=== PATIENT | female | born 1990 | race Caucasian/White ===

== ENCOUNTER 2018-09-10 18:14 | Observation (INO) | payer OTHER ==
[2018-09-10] MEDS ORDERED: LACTATED RINGERS 1,000 ML ONE (19:24)
[2018-09-10] MEDS ORDERED: LACTATED RINGERS 1,000 ML IV ONE (20:08)
[2018-09-10 20:54] LABS: Bacteria,Urine 2+ /HPF (Negative); Bilirubin,Urine NEG (Negative); Blood,Urine NEG (Negative); Color,Urine Yellow (Yellow); Protein,Urine <15 mg/dL mg/dL (Negative); Urobilinogen,Urine < 2.0 mg/dL (<2.0)
[2018-09-10] MEDS ORDERED: BRETHINE SUB-Q ONE (21:35)
[2018-09-10] MEDS ORDERED: BRETHINE ONE (21:42)
[2018-09-10] MEDS ORDERED: COLACE PO PRN (23:20)
[2018-09-10] MEDS ORDERED: PROCARDIA*For Tocolysis only PO ONE (23:45)
[2018-09-11] MEDS: DECADRON IM SCH ×3 (00:17→23:55)
[2018-09-11] MEDS: AMPICILLIN/NS 2 GM/100 ML 2 GM/100 ML BAG IV SCH ×5 (01:15→23:52)
[2018-09-11] MEDS: TYLENOL PO PRN ×3 (03:14→23:53)
[2018-09-11] MEDS: PROCARDIA*For Tocolysis only PO SCH ×4 (06:06→23:53)
[2018-09-11] MEDS: LACTATED RINGERS 1,000 ML IV SCH ×2 (07:25→18:45)
[2018-09-11] MEDS: PRENATAL VITAMIN PO SCH (10:53)
--- NOTE | 2018-09-11 17:20 | History and Physical Report ---
History of Present Illness Date of admission: 09/11/18 01:08 History of present illness: 27yo admitted for contractions at 34 weeks. She has a history of 2 previous 32, 35 week deliveries. Her cervix is 1/thick/high. She was admitted for steroids. She receives care at [facility] de . She receives weekly 17 OH- progesterone for prevention of labor. Past History - Obstetrical History : 8 Medications and Allergies Allergies Allergy/AdvReac Type Severity Reaction Status Date / Time No Known Allergies Allergy Verified 08/05/13 20:30 Home Medications Medication Instructions Recorded Confirmed Last Taken Type Pnv95/Ferrous Fumarate/FA 1 each PO QDAY #60 tablet 08/06/13 09/11/18 09/10/18 Rx [ Vitamins] Active Meds: Active Medications Acetaminophen (Tylenol) 650 mg PO Q4H PRN PRN Reason: Pain MILD(1-3)/Fever >100.5/GABRIEL Last Admin: 09/11/18 12:30 Dose: 650 mg Documented by: Dexamethasone (Decadron) 6 mg IM Q12H [facility] Stop: 09/12/18 11:46 Last Admin: 09/11/18 12:28 Dose: 6 mg Documented by: Docusate Sodium (Colace) 100 mg PO Q12H PRN PRN Reason: Constipation Ampicillin Sodium (Polycillin/Ns 2 Gm/100 Ml) 2 gm in 100 mls @ 100 mls/hr IV Q6HR [facility]; Protocol Stop: 09/12/18 18:59 Last Admin: 09/11/18 12:34 Dose: 100 mls/hr Documented by: Lactated Ringer's (Lactated Ringers) 1,000 mls @ 125 mls/hr IV DIRECT [facility] Last Admin: 09/11/18 07:25 Dose: 125 mls/hr Documented by: Multivitamins/Iron/Calcium ( Vitamin) 1 each PO QDAY [facility] Last Admin: 09/11/18 10:53 Dose: 1 each Documented by: Nifedipine (Procardia*For Tocolysis Only*) 10 mg PO Q6HR [facility] Last Admin: 09/11/18 12:28 Dose: 10 mg Documented by: - Vital Signs Vital signs: Vital Signs Pulse BP 100 H 119/74 09/10/18 18:38 09/10/18 18:38 Temp Pulse Resp BP Pulse Ox 98.2 F 90 18 105/62 09/11/18 12:36 09/11/18 16:51 09/11/18 12:36 09/11/18 16:51 - Obstetrical FHR: category 1 Cervical Dilatation: 1 Results Abnormal lab results 09/10/18 Range/Units 20:07 Ur Specific [place] 1.002 L (1.003-1.030) Urine WBC (Auto) 16.0 H (0.0-6.0) /HPF All other labs normal. Assessment and Plan - Patient Problems (1) 34 weeks gestation of Current Visit: Yes Status: Acute (2) History of delivery Current Visit: Yes Status: Acute Plan to address problem: corticosteroids for lung maturity Plan discharge home 09/12 if no cervical change.
[2018-09-12] MEDS: LACTATED RINGERS 1,000 ML IV SCH ×2 (05:08→14:24)
[2018-09-12] MEDS: AMPICILLIN/NS 2 GM/100 ML 2 GM/100 ML BAG IV SCH ×3 (05:46→18:15)
[2018-09-12] MEDS: PROCARDIA*For Tocolysis only PO SCH ×3 (05:46→18:15)
[2018-09-12] MEDS: PRENATAL VITAMIN PO SCH (10:10)
[2018-09-12] MEDS: DECADRON IM SCH (12:05)
--- NOTE | 2018-09-12 14:14 | Progress Note ---
Assessment and Plan - Patient Problems (1) 34 weeks gestation of Onset Date: 09/12/18 Current Visit: Yes Status: Acute Plan to address problem: A: IUP @ 34 weeks History of labor History of delivery s/p Steroids P: May go home today. (2) History of delivery Onset Date: 09/12/18 Current Visit: Yes Status: Acute (3) History of labor Onset Date: 09/12/18 Current Visit: Yes Status: Acute Subjective - Subjective Date of service: 09/12/18 Principal diagnosis: IUP @ 34 weeks; contractions Interval history: Pt is a 27yo HF admitted for contractions at 34 weeks. She has a history of 2 previous 32, 35 week deliveries. Her cervix was 1/thick/high, and she was admitted for steroids which were completed today. She denies regular contractions, bleeding or ROM. She receives care at [facility] and receives weekly 17 OH- progesterone for prevention of labor. Patient reports: movement normal, no new complaints, no loss of fluid, no vaginal bleeding, no contractions Objective - Vital Signs Vital Signs: Vital Signs - 12hr 09/12/18 09/12/18 07:16 11:55 Temperature 97.9 F 97.9 F Pulse Rate 80 78 Respiratory 18 18 Rate Blood Pressure 90/53 101/63 - Exam Abdomen: Present: normal appearance, soft Uterus: Present: normal FHR: category 1 Uterine Contraction Monitor Mode: External Cervical Dilatation: 1 Cervical Effacement Percentage: 40 station: -3 Uterine Contraction Pattern: Absent - Labs Labs: Abnormal Labs 09/10/18 20:07 Ur Specific [place] 1.002 L Urine WBC (Auto) 16.0 H Laboratory Tests 09/10/18 09/10/18 09/11/18 20:07 20:12 00:55 Urine Color Yellow Urine Turbidity Slightly-cloudy Urine pH 7.0 Ur Specific [place] 1.002 L Urine Protein <15 mg/dl Urine Glucose (UA) Neg Urine Ketones Neg Urine Blood Neg Urine Nitrite Neg Urine Bilirubin Neg Urine Urobilinogen < 2.0 Ur Leukocyte Esterase Lg Urine WBC (Auto) 16.0 H Urine RBC (Auto) 8.0 U Epithel Cells (Auto) 12.0 Urine Bacteria (Auto) 2+ Fibronectin Negative Blood Type O POSITIVE Antibody Screen Negative
[2018-09-12 16:11] VITALS: BP 93/55
--- NOTE | 2018-09-12 19:01 | Discharge Summary ---
Providers - Providers Date of Admission: 09/11/18 01:08 Date of discharge: 09/12/18 Attending physician: ERICA DAWKINS MD Primary care physician: ERICA DAWKINS MD Hospitalization Reason for admission: IUP - , observation Episiotomy: none Other procedures: none complications: none Discharge diagnosis: other (IUP @ 34 weeks; contractions - resolved; s/p Steroids) Hospital course: Pt is a 27yo HF admitted for contractions at 34 weeks. She has a history of 2 previous 32, 35 week deliveries. Her cervix was 1/thick/high, and she was admitted for steroids which were completed today, and will be discharged to home today with her cervical exam unchanged. She denied regular contractions, bleeding or ROM. She receives care at [facility] and receives weekly 17 OH- progesterone for prevention of labor. She will follow up in office in 3 days. Condition at discharge: Good Disposition: DC-01 TO HOME OR SELFCARE - Discharge Diagnoses (1) 34 weeks gestation of Status: Acute (2) History of delivery Status: Acute (3) History of labor Status: Acute Plan - Provider Discharge Summary Activity: routine, no sex for 6 weeks, no heavy lifting 4 weeks, no strenuous exercise Diet: routine Instructions: routine Additional instructions: [] Smoking cessation referral if applicable(refer to patient education folder for contact #) [] Refer to [facility]'s [facility] Booklet Call your doctor immediately for: * Fever > 100.5 * Heavy vaginal bleeding ( >1 pad per hour) * Severe persistent headache * Shortness of breath * Reddened, hot, painful area to leg or breast * Drainage or odor from incision. * Keep incision clean and dry at all times and follow doctor's instructions regarding bathing/showering - Follow up plan Follow up: ERICA DAWKINS MD [Primary Care Provider] - 3 Days
== END 2018-09-12 19:18 | disposition home or self-care (01) ==
LOC: TRG 18:14 → LD 09-11 01:08
PROVIDERS: ADMIT Obstetrics & Gynecology; ATTEND Obstetrics & Gynecology
DX: O62.9 Abnormality of forces of labor, unspecified (principal); Z3A.34 34 weeks gestation of pregnancy
CPT/HCPCS: 36415; 81001; 82731; 86850; 86900; 86901; 96365; 96366; 96372; G0378; J0290; J1100; J3105; J7120

== ENCOUNTER 2018-09-16 10:27 | Outpatient (CLI) | payer OTHER ==
[2018-09-16 11:38] LABS: Bacteria,Urine 1+ /HPF (Negative); Bilirubin,Urine NEG (Negative); Blood,Urine NEG (Negative); Color,Urine Straw (Yellow); Protein,Urine <15 mg/dL mg/dL (Negative); Urobilinogen,Urine < 2.0 mg/dL (<2.0)
[2018-09-16] MEDS ORDERED: LACTATED RINGERS 500 ML IV ONE (12:00)
--- NOTE | 2018-09-16 14:11 | Ultrasound Report ---
PROCEDURE: US OB LIMITED TECHNIQUE: Limited obstetrical ultrasound performed for amniotic fluid evaluation. HISTORY: ARELIS COMPARISON: None FINDINGS: There is a single live intrauterine with gestational age of about 35 weeks 1 day according to LMP/DANIELLE of 01/13/2018/10/22/2018. position is cephalic. Cardiac activity is measured at 1 35 bpm. Amniotic fluid volume appears normal. ARELIS is 13.0 cm. IMPRESSION: Normal amniotic fluid volume. ARELIS is 13.0 cm. This document is electronically signed by Nina Klein MD., September 16 2018 02:08:44 PM ET
[2018-09-16] MEDS ORDERED: PROCARDIA*For Tocolysis only PO ONE (14:22)
[2018-09-16 14:40] VITALS: BP 117/66
--- NOTE | 2018-09-17 06:37 | Progress Note ---
Assessment and Plan A: at 35 weeks, 1 day gestation. contractions, resolved with IV hydration and PO Procardia. ARELIS normal at 13.0 cm. P: Discharge patient home; pelvic rest and rest. Count movements daily. Follow up with [facility] this week. Subjective - Subjective Date of service: 09/16/18 Principal diagnosis: at 35 weeks, 1 day gestation; contractions Interval history: 27 year old A2 presents to L&D triage complaining of contractions that have been occurring for several weeks, irregular. She states she was admitted to hospital last week and was given full course of steroids for FLM. Patient reports active movement. She denies vaginal bleeding or leaking of fluid. Patient reports: movement normal, contractions, no new complaints, no loss of fluid, no vaginal bleeding Objective - Exam Abdomen: Present: normal appearance, soft. Absent: distention, tenderness, guarding, rigidity FHR: category 1 Uterine Contraction Monitor Mode: External Cervical Dilatation: 2 Cervical Effacement Percentage: 50 station: -2 Uterine Contraction Pattern: Irregular Uterine Contraction Intensity: Mild Extremities: normal - Labs Labs: Abnormal Labs 09/16/18 10:42 Ur Specific [place] 1.001 L Laboratory Results - last 24 hr 09/16/18 10:42 Urine Color Straw Urine Turbidity Clear Urine pH 7.0 Ur Specific [place] 1.001 L Urine Protein <15 mg/dl Urine Glucose (UA) Neg Urine Ketones Neg Urine Blood Neg Urine Nitrite Neg Urine Bilirubin Neg Urine Urobilinogen < 2.0 Ur Leukocyte Esterase Mod Urine WBC (Auto) 3.0 Urine RBC (Auto) 5.0 U Epithel Cells (Auto) 4.0 Urine Bacteria (Auto) 1+
== END 2018-09-16 14:57 | disposition home or self-care (01) ==
LOC: TRG 10:27
PROVIDERS: ATTEND Obstetrics & Gynecology
DX: O47.03 False labor before 37 completed weeks of gestation, third trimester (principal); O99.513 Diseases of the respiratory system complicating pregnancy, third trimester; J45.909 Unspecified asthma, uncomplicated; Z90.49 Acquired absence of other specified parts of digestive tract; Z3A.35 35 weeks gestation of pregnancy
CPT/HCPCS: 76815; 81001; J7120

== ENCOUNTER 2018-09-17 08:03 | Outpatient (CLI) | payer OTHER ==
[2018-09-17 08:29] VITALS: BP 112/75
[2018-09-17] MEDS ORDERED: LACTATED RINGERS 500 ML IV ONE (10:00)
[2018-09-17 10:16] LABS: Bacteria,Urine 4+ /HPF (Negative); Bilirubin,Urine NEG (Negative); Blood,Urine SM (Negative); Color,Urine Yellow (Yellow); Mucus,Urine FEW /HPF; Urobilinogen,Urine < 2.0 mg/dL (<2.0)
[2018-09-17] MEDS ORDERED: VISTARIL PO ONE (10:19)
== END 2018-09-17 10:36 | disposition home or self-care (01) ==
LOC: TRG 08:03
PROVIDERS: ATTEND Obstetrics & Gynecology
DX: O47.03 False labor before 37 completed weeks of gestation, third trimester (principal); O99.513 Diseases of the respiratory system complicating pregnancy, third trimester; J45.909 Unspecified asthma, uncomplicated; Z3A.35 35 weeks gestation of pregnancy; Z90.49 Acquired absence of other specified parts of digestive tract
CPT/HCPCS: 59025; 81001; Q0177

== ENCOUNTER 2018-09-17 21:02 | Outpatient (CLI) | payer OTHER ==
[2018-09-17 21:49] VITALS: BP 108/69
[2018-09-17 23:09] LABS: Bacteria,Urine 2+ /HPF (Negative); Bilirubin,Urine NEG (Negative); Blood,Urine SM (Negative); Color,Urine Yellow (Yellow); Mucus,Urine FEW /HPF; Protein,Urine <15 mg/dL mg/dL (Negative); Urobilinogen,Urine < 2.0 mg/dL (<2.0)
[2018-09-17] MEDS ORDERED: XYLOCAINE 1% MPF 5 mL INFILTRATI ONE (23:41)
[2018-09-17] MEDS ORDERED: ROCEPHIN IM ONE (23:42)
== END 2018-09-18 00:20 | disposition home or self-care (01) ==
LOC: TRG 21:02
PROVIDERS: ATTEND Obstetrics & Gynecology
DX: O62.9 Abnormality of forces of labor, unspecified (principal); O26.893 Other specified pregnancy related conditions, third trimester; O99.513 Diseases of the respiratory system complicating pregnancy, third trimester; J45.909 Unspecified asthma, uncomplicated; Z3A.35 35 weeks gestation of pregnancy
CPT/HCPCS: 59025; 81001; 96372; J0696

== ENCOUNTER 2018-09-30 19:34 | Inpatient (IN) | payer SELFPAY ==
[2018-10-01] MEDS ORDERED: AMPICILLIN/NS 2 GM/100 ML 2 GM/100 ML BAG IV ONE ×2 (00:19→03:38)
[2018-10-01] MEDS ORDERED: XYLOCAINE 2% INFILTRATI ONE (00:19)
[2018-10-01] MEDS ORDERED: BRETHINE SUB-Q PRN (00:19)
[2018-10-01] MEDS ORDERED: PITOCin/NS 20 UNIT/1000ML DRIP 20 UNITS/1,000 ML BAG IV SCH (01:00)
[2018-10-01] MEDS ORDERED: LACTATED RINGERS 1,000 ML IV SCH (01:00)
[2018-10-01 01:55] LABS: Hemoglobin 12.3 gm/dl (10.1-14.3)
[2018-10-01 02:38] LABS: Hepatitis C Virus Antibody Non-Reactive (NonReactive)
[2018-10-01] MEDS: SUBLIMAZE IV PRN ×3 (02:49→10:41)
[2018-10-01 03:04] LABS: Hematocrit 38.9 % (30.3-42.9); Mean Corpuscular HGB Conc 35 % (30-34); Mean Corpuscular Volume 84 fl (79-97); Platelet Count 228 K/mm3 (140-440); Red Blood Count 4.62 M/mm3 (3.65-5.03); Red Cell Distribution Width 13.9 % (13.2-15.2)
--- NOTE | 2018-10-01 03:06 | Ultrasound Report ---
PROCEDURE: US OB FOLLOW UP TECHNIQUE: Transabdominal imaging was obtained of the pelvis. HISTORY: EDC, gestational age, location of placenta COMPARISONS 09/16/2018 FINDINGS: The fetus is in cephalic presentation. The heart rate is 136 BPM. The placenta is fundal in pos ition and is grade 2. The ARELIS 6.8 cm which is slightly below the normal range of normal. A complete s urvey of organs was not obtained. The estimated sonographic age is 34 weeks 0 days based on son ographic criteria. The EDC is 11/12/2018 the estimated weight is 2157 g. IMPRESSION: The placenta is fundal and is grade 2. Estimated sonographic gestational age of 34 weeks 0 days. The EDC is 11/12/2018. ARELIS is 6.8 cm compatible with oligohydramnios.. This document is electronically signed by Mendez Hurtado MD., October 01 2018 03:04:29 AM ET
--- NOTE | 2018-10-01 03:32 | History and Physical Report ---
History of Present Illness Date of examination: 10/01/18 Date of admission: 10/01/18 00:52 Chief complaint: Contractions History of present illness: 27 year old presents complaining of contractions. Patient denies leaking of fluid or vaginal bleeding. Patient states she has received regular care at [facility] but records are not available. Will request records. Patient reports and EDC of 10/20/18. Patient reports her has been without difficulty or complication. She denies health problems. Patient states she takes a vitamin daily; otherwise does not take any medications. No labs available. Past History Past Medical History: other (overweight/obese) Past Surgical History: cholecystectomy [employer] History: denies: abnormal PAP smear, chlamydia, gonorrhea, hepatitis B, hepatitis C, herpes, HIV, syphilis, trichomonas Family/Genetic History: diabetes, hypertension Social history: lives with family, full code. denies: smoking, alcohol abuse, prescription drug abuse, IV drug use - Obstetrical History Expected Date of Delivery: 10/20/18 Actual Gestation: 37 Week(s) 2 Day(s) : 8 Para: 5 Hx # Term Pregnancies: 5 Number of Pregnancies: 0 Spontaneous Abortions: 2 Induced : 0 Number of Living Children: 5 Medications and Allergies Allergies Allergy/AdvReac Type Severity Reaction Status Date / Time No Known Allergies Allergy Verified 09/17/18 22:02 Home Medications Medication Instructions Recorded Confirmed Last Taken Type Pnv95/Ferrous Fumarate/FA 1 each PO QDAY #60 tablet 08/06/13 09/11/18 09/10/18 Rx [ Vitamins] Active Meds: Active Medications Ephedrine Sulfate (Ephedrine Sulfate) 10 mg IV Q2M PRN PRN Reason: Hypotension Fentanyl (Sublimaze) 100 mcg IV Q2H PRN PRN Reason: Labor Pain Last Admin: 10/01/18 02:49 Dose: 100 mcg Documented by: Lactated Ringer's (Lactated Ringers) 1,000 mls @ 125 mls/hr IV DIRECT [facility] Oxytocin/Sodium Chloride (Pitocin/Ns 20 Unit/1000ml Drip) 20 units in 1,000 mls @ 125 mls/hr IV DIRECT [facility] Ampicillin Sodium (Ampicillin/Ns 1 Gm/50 Ml) 1 gm in 50 mls @ 100 mls/hr IV Q4HR [facility]; Protocol Terbutaline Sulfate (Brethine) 0.25 mg SUB-Q ONCE PRN PRN Reason: Hyperstimulation/Hypertonicity Review of Systems All systems: negative (contractions) - Vital Signs Vital signs: Vital Signs Temp Pulse Resp BP 97.4 F L 93 H 18 117/70 09/30/18 20:19 09/30/18 20:19 09/30/18 20:19 09/30/18 20:19 Temp Pulse Resp BP Pulse Ox 97.4 F L 84 20 109/73 94 09/30/18 20:19 10/01/18 03:21 10/01/18 03:03 10/01/18 03:03 10/01/18 03:21 - Physical Exam Abdomen: Positive: normal appearance, soft. Negative: distention, tenderness, guarding, rigidity Genitourinary (Female): Positive: normal external genitalia, normal perenium. Negative: perineal/vulvar lesions Uterus: Positive: enlarged. Negative: tender Anus/Rectum: Positive: normal perianal skin Extremities: Positive: normal. Negative: tenderness - Obstetrical FHR: category 1 Uterine Contraction Monitor Mode: External Cervical Dilatation: 3.5 Cervical Effacement Percentage: 40 station: -3 Uterine Contraction Pattern: Irregular Uterine Contraction Intensity: Mild Results Result Diagrams: 10/01/18 01:17 Abnormal lab results 10/01/18 Range/Units 01:17 MCHC 35 H (30-34) % All other labs normal. Assessment and Plan A: at 37 weeks, 1 day gestation. GBS unknown. No records available. P: Admit. GBS prophylaxis. Obtain US and labs. Obtain records when clinic opens tomorrow.
[2018-10-01] MEDS ORDERED: CELESTONE SOLUSPAN IM SCH (03:57)
--- NOTE | 2018-10-01 09:40 | Progress Note ---
Assessment and Plan - Patient Problems (1) 35 weeks gestation of Current Visit: Yes Status: Acute Plan to address problem: Continue current management Will consult Dr. Silveira about plan of care (2) Oligohydramnios in third trimester Current Visit: Yes Status: Acute Qualifiers: Fetus number: single or unspecified fetus Qualified Code(s): O41.03X0 - Oligohydramnios, third trimester, not applicable or unspecified Plan to address problem: ARELIS 6.8 on 10/01/17 (3) labor Current Visit: Yes Status: Acute Qualifiers: Fetus number: single or unspecified fetus Plan to address problem: completed steroids Subjective - Subjective Date of service: 10/01/18 Principal diagnosis: IUP @ 35w6d, Contractions Interval history: 27yo G 7 P 4 1 1 5 at 35 weeks 6 days by 11 weeks 1 day US on 04/11/2018 here with c/o contractions. She reports +FMs but denies VB or LOF. US done 10/01/18: Placenta - fundal, grade 2, ARELIS 6.8 consistent with oligo and gestational age 34w0d. She is a [facility] patient who initiated care at 11 weeks. Her course is complicated by grandmultiparity, obesity, h/o PTD (on 17-OH Prog), asthma (no recent attacks), h/o thyroid disorder (normal TSH), cervical insufficiency and labor (s/p steroids). Labs: O+, Antibody Screen neg, Pap Test normal, RI, VDRL neg, HBsAg neg, HIV neg, MSAFP neg, Diabetes Screen 123, GC/CT neg, GBS unknown Patient reports: movement normal, contractions, other (c/o nausea and vomiting), no loss of fluid, no vaginal bleeding Objective - Vital Signs Vital Signs: Vital Signs - 12hr 09/30/18 09/30/18 09/30/18 21:29 21:59 22:28 Pulse Rate 88 90 93 H Respiratory Rate Blood Pressure 111/72 115/68 118/76 Blood Pressure [Left] O2 Sat by Pulse Oximetry 09/30/18 09/30/18 09/30/18 22:58 23:28 23:59 Pulse Rate 102 H 97 H 98 H Respiratory Rate Blood Pressure 113/75 121/76 125/85 Blood Pressure [Left] O2 Sat by Pulse Oximetry 10/01/18 10/01/18 10/01/18 02:49 03:03 03:06 Pulse Rate 95 H 87 Respiratory 18 20 Rate Blood Pressure 109/73 Blood Pressure 109/73 [Left] O2 Sat by Pulse 97 Oximetry 10/01/18 10/01/18 10/01/18 03:11 03:16 03:20 Pulse Rate 95 H 99 H 83 Respiratory Rate Blood Pressure Blood Pressure [Left] O2 Sat by Pulse 97 96 94 Oximetry 10/01/18 10/01/18 10/01/18 03:21 03:22 03:26 Pulse Rate 84 104 H Respiratory 18 Rate Blood Pressure Blood Pressure [Left] O2 Sat by Pulse 94 97 Oximetry 10/01/18 10/01/18 10/01/18 03:31 03:33 03:36 Pulse Rate 93 H 84 105 H Respiratory Rate Blood Pressure Blood Pressure [Left] O2 Sat by Pulse 97 94 96 Oximetry 10/01/18 10/01/18 10/01/18 03:41 03:46 06:22 Pulse Rate 99 H 88 95 H Respiratory Rate Blood Pressure 112/75 Blood Pressure [Left] O2 Sat by Pulse 97 96 Oximetry 10/01/18 10/01/18 10/01/18 08:53 08:58 09:03 Pulse Rate 96 H 82 90 Respiratory Rate Blood Pressure Blood Pressure [Left] O2 Sat by Pulse 99 98 99 Oximetry 10/01/18 10/01/18 10/01/18 09:08 09:13 09:18 Pulse Rate 92 H 77 88 Respiratory Rate Blood Pressure Blood Pressure [Left] O2 Sat by Pulse 98 98 99 Oximetry 10/01/18 09:23 Pulse Rate 87 Respiratory Rate Blood Pressure Blood Pressure [Left] O2 Sat by Pulse 98 Oximetry - Exam Vulva: both: normal FHR: auscultation normal, category 1 Uterine Contraction Monitor Mode: External Cervical Dilatation: 3 Cervical Effacement Percentage: 50 station: -3 Uterine Contraction Pattern: Irregular - Labs Labs: Abnormal Labs 10/01/18 01:17 MCHC 35 H Laboratory Results - last 24 hr 10/01/18 10/01/18 10/01/18 01:17 01:17 01:17 WBC 9.9 RBC 4.62 Hgb 12.3 Hct 38.9 MCV 84 MCH 29 MCHC 35 H RDW 13.9 Plt Count 228 Hemoglobin A1c Hep Bs Antigen Hepatitis C Antibody HIV 1&2 Antibody Rapid Non react HIV P24 Antigen Non react Rubella IgG Antibody Blood Type O POSITIVE Antibody Screen Negative 10/01/18 10/01/18 10/01/18 01:17 01:17 01:17 WBC RBC Hgb Hct MCV MCH MCHC RDW Plt Count Hemoglobin A1c 5.1 Hep Bs Antigen Non-reactive Hepatitis C Antibody Non-reactive HIV 1&2 Antibody Rapid HIV P24 Antigen Rubella IgG Antibody Immune Blood Type Antibody Screen - Results US- obstetric: report reviewed
[2018-10-01] MEDS ORDERED: STADOL IV PRN (10:32)
[2018-10-01] MEDS: AMPICILLIN/NS 1 GM/50 ML 1 GM/50 ML BAG IV SCH ×3 (10:37→18:30)
[2018-10-01] MEDS: ZOFRAN IV PRN (12:33)
--- NOTE | 2018-10-01 14:11 | Progress Note ---
Assessment and Plan - Patient Problems (1) 35 weeks gestation of Current Visit: Yes Status: Acute (2) labor Current Visit: Yes Status: Acute Plan to address problem: Patient did receive steroid at 32 weeks for FLM. Her cervix has not changed since admission. Will repeat sonogram for ARELIS and BPP. If all WNL, she may have terburtaline. If ARELIS <5, will do induce labor. (3) Decreased amniotic fluid Current Visit: Yes Status: Acute (4) GBS screening not performed Current Visit: Yes Status: Acute (5) IUGR (intrauterine growth restriction) Current Visit: Yes Status: Acute Subjective - Subjective Date of service: 10/01/18 Principal diagnosis: IUD at 35 weeks and 6 days gestation, PTL Interval history: Patient is a 27 year old , with unknown LMP, EDC 10/30/18 at 35 weeks and 6 days gestation confirmed by a first trimester ultrasound who was admitted early this AM for contractions. Her cervix was 3 cm/long. She is a patient of [facility]. On admisson, her records were not available. The patient gave a due date of 10/20 which put her at 37+ weeks gestation. This AM, upon reviewing her records, her due date is actually 10/30/18 and that makes her 35 weeks and 6 days. Sono showed an ARELIS of 6.8 cm, EFW 4 lbs 7 oz. Patient denies any fluid leakage or bleeding. She has a history of PTD at 32 weeks and has been on [place] during this . Her cervix is 3 cm/long/post. Patient reports: movement normal, contractions, other (c/o nausea and vomiting), no loss of fluid, no vaginal bleeding Objective - Vital Signs Vital Signs: Vital Signs - 12hr 10/01/18 10/01/18 10/01/18 02:49 03:03 03:06 Temperature Pulse Rate 95 H 87 Respiratory 18 20 Rate Blood Pressure 109/73 Blood Pressure 109/73 [Left] O2 Sat by Pulse 97 Oximetry 10/01/18 10/01/18 10/01/18 03:11 03:16 03:20 Temperature Pulse Rate 95 H 99 H 83 Respiratory Rate Blood Pressure Blood Pressure [Left] O2 Sat by Pulse 97 96 94 Oximetry 10/01/18 10/01/18 10/01/18 03:21 03:22 03:26 Temperature Pulse Rate 84 104 H Respiratory 18 Rate Blood Pressure Blood Pressure [Left] O2 Sat by Pulse 94 97 Oximetry 10/01/18 10/01/18 10/01/18 03:31 03:33 03:36 Temperature Pulse Rate 93 H 84 105 H Respiratory Rate Blood Pressure Blood Pressure [Left] O2 Sat by Pulse 97 94 96 Oximetry 10/01/18 10/01/18 10/01/18 03:41 03:46 06:22 Temperature Pulse Rate 99 H 88 95 H Respiratory Rate Blood Pressure 112/75 Blood Pressure [Left] O2 Sat by Pulse 97 96 Oximetry 10/01/18 10/01/18 10/01/18 08:45 08:53 08:58 Temperature 97.5 F L Pulse Rate 96 H 82 Respiratory 18 Rate Blood Pressure Blood Pressure [Left] O2 Sat by Pulse 99 98 Oximetry 10/01/18 10/01/18 10/01/18 09:03 09:08 09:13 Temperature Pulse Rate 90 92 H 77 Respiratory Rate Blood Pressure Blood Pressure [Left] O2 Sat by Pulse 99 98 98 Oximetry 10/01/18 10/01/18 10/01/18 09:18 09:23 09:28 Temperature Pulse Rate 88 87 78 Respiratory Rate Blood Pressure Blood Pressure [Left] O2 Sat by Pulse 99 98 98 Oximetry 10/01/18 10/01/18 10/01/18 09:30 09:33 09:38 Temperature Pulse Rate 106 H 92 H 83 Respiratory Rate Blood Pressure Blood Pressure [Left] O2 Sat by Pulse 91 98 98 Oximetry 10/01/18 10/01/18 10/01/18 09:43 09:48 09:53 Temperature Pulse Rate 83 101 H 80 Respiratory Rate Blood Pressure Blood Pressure [Left] O2 Sat by Pulse 98 99 99 Oximetry 10/01/18 10/01/18 10/01/18 09:58 10:03 10:08 Temperature Pulse Rate 75 95 H 81 Respiratory Rate Blood Pressure Blood Pressure [Left] O2 Sat by Pulse 99 98 97 Oximetry 10/01/18 10/01/18 10/01/18 10:13 10:18 10:22 Temperature Pulse Rate 87 95 H 81 Respiratory Rate Blood Pressure Blood Pressure [Left] O2 Sat by Pulse 98 98 87 Oximetry 10/01/18 10/01/18 10/01/18 10:23 10:28 10:33 Temperature Pulse Rate 82 88 83 Respiratory Rate Blood Pressure Blood Pressure [Left] O2 Sat by Pulse 98 94 95 Oximetry 10/01/18 10/01/18 10/01/18 10:34 10:38 12:31 Temperature Pulse Rate 90 77 91 H Respiratory Rate Blood Pressure 110/64 Blood Pressure [Left] O2 Sat by Pulse 94 93 Oximetry 10/01/18 12:35 Temperature 97.9 F Pulse Rate Respiratory 18 Rate Blood Pressure Blood Pressure [Left] O2 Sat by Pulse Oximetry - Exam Cardiovascular: Normal S1, Normal S2 Lungs: Clear to auscultation Vulva: both: normal FHR: category 1 Uterine Contraction Monitor Mode: External Cervical Dilatation: 3 Cervical Effacement Percentage: 0 station: -3 Uterine Contraction Pattern: Irregular Uterine Contraction Intensity: Mild Deep Tendon Reflex Grade: Normal +2 - Labs Labs: Abnormal Labs 10/01/18 01:17 MCHC 35 H Laboratory Results - last 24 hr 10/01/18 10/01/18 10/01/18 01:17 01:17 01:17 WBC 9.9 RBC 4.62 Hgb 12.3 Hct 38.9 MCV 84 MCH 29 MCHC 35 H RDW 13.9 Plt Count 228 Hemoglobin A1c RPR Nonreactive Hep Bs Antigen Hepatitis C Antibody HIV 1&2 Antibody Rapid HIV P24 Antigen Rubella IgG Antibody Blood Type O POSITIVE Antibody Screen Negative 10/01/18 10/01/18 10/01/18 01:17 01:17 01:17 WBC RBC Hgb Hct MCV MCH MCHC RDW Plt Count Hemoglobin A1c RPR Hep Bs Antigen Non-reactive Hepatitis C Antibody Non-reactive HIV 1&2 Antibody Rapid Non react HIV P24 Antigen Non react Rubella IgG Antibody Immune Blood Type Antibody Screen 10/01/18 01:17 WBC RBC Hgb Hct MCV MCH MCHC RDW Plt Count Hemoglobin A1c 5.1 RPR Hep Bs Antigen Hepatitis C Antibody HIV 1&2 Antibody Rapid HIV P24 Antigen Rubella IgG Antibody Blood Type Antibody Screen - Results US- obstetric: report reviewed
[2018-10-01 20:09] VITALS: BP 110/67
[2018-10-01] MEDS ORDERED: AMBIEN PO PRN (21:58)
--- NOTE | 2018-10-02 00:27 | Ultrasound Report ---
PROCEDURE: US OB BPP WO NON-STRESS TECHNIQUE: A limited OB sonogram was obtained for evaluation of the biophysical profile. HISTORY: decreased amniotic fluid COMPARISONS: None FINDINGS: For breathing movements, score of 2 out of 2 was obtained. For movements, a score of 2 out of 2 was obtained. For posture and tone,, a score of 2 out of 2 was obtained. Qualitative amniotic fluid volume, a score of 2 out of 2 was obtained. The heart rate is 120 BPM. IMPRESSION: Normal biophysical profile score of 8 out of 8. The heart rate is 120 BPM. This document is electronically signed by Mendez Hurtado MD., October 02 2018 12:25:12 AM ET
--- NOTE | 2018-10-02 00:28 | Ultrasound Report ---
PROCEDURE: US OB LIMITED TECHNIQUE: A limited OB sonogram was obtained for evaluation of the ARELIS. HISTORY: decreased amniotic fluid COMPARISONS: None FINDINGS: The ARELIS is 9.4 cm which is normal. The fetus is in cephalic presentation. The heart rate is 120 BPM. IMPRESSION: Normal AERLIS of 9.4 cm.. This document is electronically signed by Mendez Hurtado MD., October 02 2018 12:26:13 AM ET
--- NOTE | 2018-10-02 02:28 | Ultrasound Report ---
PROCEDURE: US OB VELOCIMETRY UMBILCAL ART TECHNIQUE: A limited OB sonogram was obtained for evaluation of the ARELIS. HISTORY: decreased amniotic fluid COMPARISONS: None FINDINGS: The umbilical artery S/D ratio is 2.51. Resistive index is 0.60. IMPRESSION: The umbilical artery S/D ratio is 2.51. Resistive index is 0.60. This document is electronically signed by Tacos Lisa MD., October 02 2018 02:26:18 AM ET
[2018-10-02] MEDS ORDERED: STADOL IV PRN (05:40)
[2018-10-02] MEDS: ZOFRAN IV PRN (09:25)
--- NOTE | 2018-10-02 09:26 | Progress Note ---
Assessment and Plan - Patient Problems (1) 35 weeks gestation of Current Visit: Yes Status: Acute Plan to address problem: heart tones reassurring. No cervical change. Discharge home with labor precautions. (2) Decreased amniotic fluid Current Visit: Yes Status: Acute Plan to address problem: Resolved. Encourage kick counts. Will contact ANDRIY Gamez [facility] de to repeat ARELIS tomorrow. Subjective - Subjective Principal diagnosis: IUP @ 35w6d, Contractions Interval history: Complains of back pain and reports good movement. She states she feels pressure and believes the head is down low however on cervical exam the head is -4. Patient reports: movement normal, contractions, other (c/o nausea and vomiting), no loss of fluid, no vaginal bleeding Objective - Vital Signs Vital Signs: Vital Signs - 12hr 10/01/18 10/01/18 10/01/18 21:28 21:33 21:38 Temperature Pulse Rate 88 74 74 Respiratory Rate O2 Sat by Pulse 100 100 100 Oximetry 10/01/18 10/01/18 10/01/18 21:43 21:48 21:53 Temperature Pulse Rate 96 H 80 83 Respiratory Rate O2 Sat by Pulse 100 100 98 Oximetry 10/01/18 10/01/18 10/01/18 21:58 22:03 22:08 Temperature Pulse Rate 82 85 85 Respiratory Rate O2 Sat by Pulse 100 100 0 L Oximetry 10/01/18 10/01/18 10/01/18 22:13 22:23 22:24 Temperature Pulse Rate 86 53 L 71 Respiratory Rate O2 Sat by Pulse 100 56 L 100 Oximetry 10/01/18 10/01/18 10/01/18 22:29 22:34 22:39 Temperature Pulse Rate 98 H 73 99 H Respiratory Rate O2 Sat by Pulse 100 100 100 Oximetry 10/01/18 10/01/18 10/01/18 22:44 22:45 22:49 Temperature Pulse Rate 108 H 57 L 110 H Respiratory Rate O2 Sat by Pulse 99 84 95 Oximetry 10/01/18 10/01/18 10/01/18 22:51 22:54 22:59 Temperature Pulse Rate 103 H 107 H 96 H Respiratory Rate O2 Sat by Pulse 94 95 97 Oximetry 10/01/18 10/01/18 10/01/18 23:04 23:09 23:14 Temperature Pulse Rate 99 H 85 89 Respiratory Rate O2 Sat by Pulse 97 98 98 Oximetry 10/01/18 10/01/18 10/01/18 23:19 23:24 23:29 Temperature Pulse Rate 81 82 88 Respiratory Rate O2 Sat by Pulse 96 97 97 Oximetry 10/01/18 10/01/18 10/01/18 23:34 23:39 23:44 Temperature Pulse Rate 85 86 85 Respiratory Rate O2 Sat by Pulse 97 97 96 Oximetry 10/01/18 10/01/18 10/01/18 23:45 23:49 23:54 Temperature Pulse Rate 98 H 89 85 Respiratory Rate O2 Sat by Pulse 94 96 97 Oximetry 10/01/18 10/02/18 10/02/18 23:59 00:04 00:09 Temperature Pulse Rate 88 90 84 Respiratory Rate O2 Sat by Pulse 96 96 97 Oximetry 10/02/18 10/02/18 10/02/18 00:14 00:16 00:19 Temperature Pulse Rate 85 86 80 Respiratory Rate O2 Sat by Pulse 95 94 96 Oximetry 10/02/18 10/02/18 10/02/18 00:24 00:29 00:34 Temperature Pulse Rate 101 H 88 86 Respiratory Rate O2 Sat by Pulse 96 98 97 Oximetry 10/02/18 10/02/18 10/02/18 00:39 00:44 00:49 Temperature Pulse Rate 82 92 H 94 H Respiratory Rate O2 Sat by Pulse 96 98 97 Oximetry 10/02/18 10/02/18 10/02/18 00:54 00:59 01:04 Temperature Pulse Rate 94 H 81 89 Respiratory Rate O2 Sat by Pulse 97 98 98 Oximetry 10/02/18 10/02/18 10/02/18 01:09 01:10 01:14 Temperature Pulse Rate 92 H 89 91 H Respiratory Rate O2 Sat by Pulse 97 92 93 Oximetry 10/02/18 10/02/18 10/02/18 01:19 01:24 01:25 Temperature Pulse Rate 87 81 Respiratory Rate O2 Sat by Pulse 93 93 93 Oximetry 10/02/18 10/02/18 10/02/18 05:11 05:12 05:17 Temperature Pulse Rate 83 74 Respiratory Rate O2 Sat by Pulse 91 100 100 Oximetry 10/02/18 10/02/18 10/02/18 05:22 05:27 05:32 Temperature Pulse Rate 89 79 76 Respiratory Rate O2 Sat by Pulse 100 100 100 Oximetry 10/02/18 10/02/18 10/02/18 05:34 05:37 05:42 Temperature Pulse Rate 85 71 90 Respiratory Rate O2 Sat by Pulse 0 L 100 100 Oximetry 10/02/18 10/02/18 10/02/18 05:47 05:48 05:52 Temperature Pulse Rate 75 71 65 Respiratory Rate O2 Sat by Pulse 100 68 L 100 Oximetry 10/02/18 10/02/18 10/02/18 05:57 06:02 06:07 Temperature Pulse Rate 72 72 74 Respiratory Rate O2 Sat by Pulse 100 100 100 Oximetry 10/02/18 10/02/18 10/02/18 06:12 06:17 06:22 Temperature Pulse Rate 74 67 67 Respiratory Rate O2 Sat by Pulse 100 100 100 Oximetry 10/02/18 10/02/18 10/02/18 06:27 06:32 06:37 Temperature Pulse Rate 68 71 69 Respiratory Rate O2 Sat by Pulse 100 100 100 Oximetry 10/02/18 10/02/18 10/02/18 06:42 06:47 06:52 Temperature Pulse Rate 68 81 63 Respiratory Rate O2 Sat by Pulse 100 100 100 Oximetry 10/02/18 10/02/18 10/02/18 06:57 07:02 07:07 Temperature Pulse Rate 68 76 75 Respiratory Rate O2 Sat by Pulse 100 100 100 Oximetry 10/02/18 10/02/18 10/02/18 07:12 07:17 07:22 Temperature Pulse Rate 83 87 68 Respiratory Rate O2 Sat by Pulse 100 100 100 Oximetry 10/02/18 10/02/18 10/02/18 07:27 07:32 07:37 Temperature Pulse Rate 78 82 70 Respiratory Rate O2 Sat by Pulse 100 100 100 Oximetry 10/02/18 10/02/18 10/02/18 07:42 07:47 07:52 Temperature Pulse Rate 88 77 69 Respiratory Rate O2 Sat by Pulse 100 100 100 Oximetry 10/02/18 10/02/18 07:57 08:00 Temperature 98.6 F Pulse Rate 89 Respiratory 18 Rate O2 Sat by Pulse 100 Oximetry - Exam FHR: category 1 Cervical Dilatation: 3 Cervical Effacement Percentage: 50 station: -4 Uterine Contraction Pattern: Irregular - Labs Labs: Abnormal Labs 10/01/18 01:17 MCHC 35 H Laboratory Results - last 24 hr 10/01/18 01:17 RPR Nonreactive
--- NOTE | 2018-10-02 09:58 | Discharge Summary ---
Providers - Providers Date of Admission: 10/01/18 00:52 Date of discharge: 10/02/18 Attending physician: ERICA DAWKINS MD Primary care physician: ERICA DAWKINS MD Hospitalization Reason for admission: active labor, labor (no cervical change 48hrs) Delivery: other (undelivered) Discharge diagnosis: other ( contractions) Hospital course: contractions with no cervical change. ARELIS on discharge 9cm. Encourage kick counts. Will contact ANDRIY Gamez [facility] to repeat ARELIS tomorrow. Disposition: DC- TO HOME OR SELFCARE - Discharge Diagnoses (1) 35 weeks gestation of Status: Acute (2) Decreased amniotic fluid Status: Acute Plan - Provider Discharge Summary Activity: other (no heavy lifting, no exercise, no sexual intercourse) Additional instructions: [] Smoking cessation referral if applicable(refer to patient education folder for contact #) [] Refer to [facility]'s [facility] Booklet Call your doctor immediately for: * ruptured membranes * vaginal bleeding * decreased movement * labor contractions. - Follow up plan Follow up: ERICA DAWKINS MD [Primary Care Provider] - 7 Days
== END 2018-10-02 11:40 | disposition home or self-care (01) | DRG 831 ==
LOC: TRG 19:34 → LD 10-01 00:52
PROVIDERS: ADMIT Obstetrics & Gynecology; ATTEND Obstetrics & Gynecology
DX: O41.03X0 Oligohydramnios, third trimester, not applicable or unspecified (principal); O60.03 Preterm labor without delivery, third trimester; O99.213 Obesity complicating pregnancy, third trimester; O09.43 Supervision of pregnancy with grand multiparity, third trimester; O99.513 Diseases of the respiratory system complicating pregnancy, third trimester; O36.5930 Maternal care for other known or suspected poor fetal growth, third trimester, not applicable or unspecified; Z3A.35 35 weeks gestation of pregnancy; E66.9 Obesity, unspecified; J45.909 Unspecified asthma, uncomplicated
CPT/HCPCS: 36415; 76815; 76816; 76819; 76820; 83036; 85027; 86592; 86706; 86762; 86803; 86850; 86900; 86901; 87806; G0378; J0290; J0595; J0702; J2405; J2590; J3010; J7120